=== PATIENT | female | born 1940 | race Two or more races ===

== ENCOUNTER → 2017-07-30 | Outpatient (CLI) | payer MEDICARE, OTHER ==
--- NOTE | 2017-07-30 16:53 | WOMENS IMAGING REPORT ---
EXAM DESCRIPTION: 3D SCREENING MAMMO BILAT COMPLETED DATE/TIME: 07/30/2017 9:02 am REASON FOR STUDY: SCREENING MAMMO COMPARISON: 2014, 2015 TECHNIQUE: Standard craniocaudal and mediolateral oblique views of each breast recorded using digita l acquisition and breast tomosynthesis. LIMITATIONS: None. FINDINGS: No masses, calcifications or architectural distortion. No areas of suspicion. Read with the assistance of CAD. .[facility] - R2 Cenova Version 1.3 .[facility] Imaging - R2 Cenova Version 1.3 .[facility] Imaging - R2 Cenova Version 2.4 .[facility] [place]2 Cenova Version 2.4 .REPLACED BY [facility] - R2 Radial Saw Operator Version 9.2 IMPRESSION: NORMAL MAMMOGRAM. BIRADS 1. BREAST DENSITY: b. There are scattered areas of fibroglandular density. BIRAD: 1 NEGATIVE RECOMMENDATION: ROUTINE SCREENING COMMENT: The patient has been notified of the results by letter per MQSA requirements. Additional no tification policies are in place for contacting patient with suspicious or incomplete findings. Quality ID #[id number]: The [employer] recommends an annual screening mammogram for women aged 40 years or over. This facility utilizes a reminder system to ensure that all patients receive reminder letters, and/or direct phone calls for appointments. This includes reminders for routine scr eening mammograms, diagnostic mammograms, or other Breast Imaging Interventions when appropriate. Th is patient will be placed in the appropriate reminder system. The [employer] (ACR) has developed recommendations for screening MRI of the breast s in certain patient populations, to be used in conjunction with mammography. Breast MRI surveillanc e may be appropriate for women with more than 20% lifetime risk of developing breast cancer as deter mined by genetic testing, significant family history of the disease, or history of mantle radiation f or Hodgkins Disease. ACR Practice Guidelines 2008. DBT Technology DBT is a type of tomographic mammography. With conventional mammography, overlapping breast tissue ma y make lesions difficult to detect, even with good compression. DBT uses an x-ray tube that rotates a round the breast, taking images at different angles. These images are then combined to create thin sl ices of the breast that the radiologist can view as a 3D reconstruction. The XanEdu unit can perform full-field digital mammograms (2D imaging); or DBT (3D imaging); or both, in a combination mode that quickly performs both the mammogram and the tomosynthesis scan while the breast is still compressed. PQRS 6045F: Fluoroscopic imaging is not utilized for breast tomosynthesis. TECHNICAL DOCUMENTATION: FINDING NUMBER: (1) ASSESSMENT: (1) JOB ID: [id number] [employer]- All Rights Reserved
== END ==
LOC: WI 08:45
PROVIDERS: ATTEND Internal Medicine
DX: Z12.31 Encounter for screening mammogram for malignant neoplasm of breast (principal)
CPT/HCPCS: 77063; G0202; 77067

== ENCOUNTER → 2018-04-08 | Outpatient (CLI) | payer MEDICARE, OTHER ==
--- NOTE | 2018-04-08 15:13 | XCELERA REPORT ---
[address] [place] [facility] [address] Lower Extremity Venous Evaluation Procedure: Color flow and duplex imaging of the veins of the left lower extremity as well as the right Common Femoral vein. Right Sided Venous Evaluation The right common femoral vein is fully compressible. Spontaneous and phasic flow is present in the right common femoral vein. Left Sided Venous Evaluation Normal vessel filling wall to wall, compression and augmentation as well as Colour flow down to the infrageniculate veins. Interpretation Summary No duplex evidence of DVT or obstruction in the left lower extremity nor in the right Common Femoral vein. Name: RINKU SAPP Age: 77 yrs Gender: Female : 1940 Patient Status: Outpatient Patient Location: Study Date: 04/08/2018 01:16 PM Reason For Study: LLE PAIN Ordering Physician: LARRY WESTON PA-C Performed By: Erasmo Herrera : LARRY WESTON PA-C > Pritesh Bolaños
== END ==
LOC: SP 13:56
PROVIDERS: ATTEND Physician Assistant
DX: M79.605 Pain in left leg (principal)
CPT/HCPCS: 93971

== ENCOUNTER 2018-07-19 10:50 | Emergency (ER) | payer MEDICARE, OTHER ==
--- NOTE | 2018-07-19 11:45 | ER Document Report ---
HPI - HPI Patient complains to provider of: Left leg pain Time Seen by Provider: 07/19/18 11:22 Onset: Other - 2 days Onset/Duration: Persistent Quality of pain: Achy Pain Level: 1 Context: Patient presents complaining of pain to the popliteal area of her left leg. Patient denies any injury or recent travel. Patient denies any fever. Associated Symptoms: Other - Left leg pain Exacerbated by: Standing, Movement, Walking Relieved by: Denies Similar symptoms previously: No Recently seen / treated by doctor: No - ROS ROS below otherwise negative: Yes Systems Reviewed and Negative: Yes All other systems reviewed and negative - CONSTITUTIONAL Constitutional: DENIES: Fever, Chills - EENT EENT: DENIES: Sore Throat - NEURO Neurology: DENIES: Headache - MUSCULOSKELETAL Musculoskeletal: REPORTS: Extremity pain - left leg, Swelling - DERM Skin Color: Normal Skin Problems: None Past Medical History - General Information source: Patient - Social History Smoking Status: Current Every Day Smoker Smoking Education Provided: Yes Frequency of alcohol use: Rare Drug Abuse: None Lives with: Alone Family History: Reviewed & Not Pertinent Patient has suicidal ideation: No Patient has homicidal ideation: No - Past Medical History Cardiac Medical History: Reports: Hx Hypercholesterolemia, Hx Hypertension Renal/ Medical History: Denies: Hx Peritoneal Dialysis Past Surgical History: Reports: Hx Cardiac Surgery - valve replacement, Hx Hysterectomy, Hx Orthopedic Surgery - left shoulder Vertical Provider Document - CONSTITUTIONAL Agree With Documented VS: Yes Exam Limitations: No Limitations General Appearance: WD/WN, No Apparent Distress - INFECTION CONTROL TRAVEL OUTSIDE OF THE [place] IN LAST 30 DAYS: No - HEENT HEENT: Atraumatic, Normocephalic - NECK Neck: Normal Inspection - RESPIRATORY Respiratory: Breath Sounds Normal, No Respiratory Distress - CARDIOVASCULAR Cardiovascular: Regular Rate, Regular Rhythm Pulses: Normal: Dorsalis pedis - BACK Back: Normal Inspection - MUSCULOSKELETAL/EXTREMETIES Musculoskeletal/Extremeties: MAEW, FROM, Tender - Left knee popliteal pain, normal skin color temperature overlying joint, no laxity with varus or valgus maneuvers. Patient with full range of motion, No Edema - NEURO Level of Consciousness: Awake, Alert, Appropriate Motor/Sensory: No Motor Deficit - DERM Integumentary: Warm, Dry, No Rash Course - Re-evaluation Re-evalutation: 07/19/18 13:17 Knee x-ray reviewed, no concern for fracture. No concern for DVT or septic arthritis. Patient does have a lucent mass noted on Doppler to the popliteal area concerning for possible Castle's cyst. Offered immobilization of knee with Mao wrap, patient declines. Patient was given a copy of her radiology as well as Doppler report to take to her orthopedic surgeon. - Vital Signs Vital signs: Temp Pulse Resp BP Pulse Ox 98.5 F 99 16 148/75 H 97 07/19/18 10:56 07/19/18 10:56 07/19/18 10:56 07/19/18 10:56 07/19/18 10:56 - Diagnostic Test Radiology reviewed: Pending, Image reviewed Discharge - Discharge Clinical Impression: Popliteal leg pain, Popliteal mass L leg Condition: Stable Disposition: HOME, SELF-CARE Instructions: Growth or Mass, Pending Workup ([facility]), Ultram ([facility]) Additional Instructions: Return immediately for any new or worsening symptoms Followup with your primary care provider, call tomorrow to make a followup appointment Follow-up with orthopedics for further evaluation, call today for a follow-up appointment Prescriptions: Tramadol HCl [Ultram 50 mg Tablet] 50 mg PO ASDIR PRN #15 tablet PRN Reason: Referrals: ONEAL HUANG MD [Primary Care Provider] - Follow up as needed [facility] [Provider Group] - Follow up in 3-5 days
--- NOTE | 2018-07-19 13:07 | XCELERA REPORT ---
[address] [place] [facility] [address] Lower Extremity Venous Evaluation Procedure: Color flow and duplex imaging of the veins of the left lower extremity as well as the right Common Femoral vein. Right Sided Venous Evaluation The right common femoral vein is fully compressible. Spontaneous and phasic flow is present in the right common femoral vein. Left Sided Venous Evaluation Non vascular, lucent mass in the Popliteal fossa, 3.2 x 2 x 0.8 cms. Normal vessel filling wall to wall, compression and augmentation as well as Colour flow down to the infrageniculate veins. Interpretation Summary No duplex evidence of DVT or obstruction in the left lower extremity nor in the right Common Femoral vein. 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 Name: RINKU SAPP Age: 77 yrs Gender: Female : 1940 Patient Status: Emergency Patient Location: ER Study Date: 07/19/2018 12:11 PM Reason For Study: L popliteal pain Ordering Physician: SHANON HENRY Performed By: Cari Hewitt : SHANON HENRY > Pritesh Bolaños
--- NOTE | 2018-07-19 13:20 | RADIOLOGY REPORT (SQ) ---
EXAM DESCRIPTION: KNEE LEFT 4 VIEW COMPLETED DATE/TIME: 07/19/2018 12:47 pm REASON FOR STUDY: popliteal pain , no known injury COMPARISON: None. NUMBER OF VIEWS: Four views. TECHNIQUE: AP, lateral, and both oblique radiographic images acquired of the left knee. LIMITATIONS: None. FINDINGS: MINERALIZATION: Osteopenic BONES: No acute fracture or dislocation. No worrisome bone lesions. JOINT: Suprapatellar knee joint effusion is present. Moderate medial compartment joint space narrowi ng and bony spurring. Medial and lateral compartment chondrocalcinosis SOFT TISSUES: No soft tissue swelling. No radio-opaque foreign body. OTHER: No other significant finding. IMPRESSION: Knee joint effusion. Moderate osteoarthritis medial compartment No acute fracture or malalignment TECHNICAL DOCUMENTATION: JOB ID: [id number]- All Rights Reserved Reading location - IP/workstation name: [email or web address]
[2018-07-19 13:37] VITALS: BP 132/73
== END 2018-07-19 13:46 | disposition home or self-care (01) ==
LOC: ER 10:50
DX: M79.605 Pain in left leg (principal); R22.42 Localized swelling, mass and lump, left lower limb; F17.200 Nicotine dependence, unspecified, uncomplicated; I10 Essential (primary) hypertension
CPT/HCPCS: 93971; 99284

== ENCOUNTER → 2018-07-31 | Outpatient (CLI) | payer MEDICARE, OTHER ==
--- NOTE | 2018-07-31 15:55 | WOMENS IMAGING REPORT ---
EXAM DESCRIPTION: 3D SCREENING MAMMO BILAT COMPLETED DATE/TIME: 07/31/2018 10:27 am REASON FOR STUDY: SVETLANA SCREENING MAMMO Z12.31 Z12.31 ENCNTR SCREEN MAMMOGRAM FOR MALIGNANT NEOPLASM OF JOEY COMPARISON: Multiple since 2014 TECHNIQUE: Standard craniocaudal and mediolateral oblique views of each breast recorded using digita l acquisition and breast tomosynthesis. LIMITATIONS: None. FINDINGS: No masses, calcifications or architectural distortion. No areas of suspicion. Read with the assistance of CAD. .[facility] - R2 Cenova Version 1.3 .[facility] Imaging - R2 Cenova Version 1.3 .[facility] Imaging - R2 Cenova Version 2.4 .[facility] - R2 Cenova Version 2.4 .[facility] [place] - R2 Physician General Practice Version 9.2 IMPRESSION: NORMAL MAMMOGRAM. BIRADS 1. BREAST DENSITY: b. There are scattered areas of fibroglandular density. BIRAD: 1 NEGATIVE RECOMMENDATION: ROUTINE SCREENING Please continue yearly bilateral screening mammography/tomosynthesis in July 2019 COMMENT: The patient has been notified of the results by letter per SA requirements. Additional no tification policies are in place for contacting patient with suspicious or incomplete findings. Quality ID #225: The [employer] recommends an annual screening mammogram for women aged 40 years or over. This facility utilizes a reminder system to ensure that all patients receive reminder letters, and/or direct phone calls for appointments. This includes reminders for routine scr eening mammograms, diagnostic mammograms, or other Breast Imaging Interventions when appropriate. Th is patient will be placed in the appropriate reminder system. The [employer] (ACR) has developed recommendations for screening MRI of the breast s in certain patient populations, to be used in conjunction with mammography. Breast MRI surveillanc e may be appropriate for women with more than 20% lifetime risk of developing breast cancer as deter mined by genetic testing, significant family history of the disease, or history of mantle radiation f or Hodgkins Disease. ACR Practice Guidelines 2008. DBT Technology DBT is a type of tomographic mammography. With conventional mammography, overlapping breast tissue ma y make lesions difficult to detect, even with good compression. DBT uses an x-ray tube that rotates a round the breast, taking images at different angles. These images are then combined to create thin sl ices of the breast that the radiologist can view as a 3D reconstruction. The [employer] unit can perform full-field digital mammograms (2D imaging); or DBT (3D imaging); or both, in a combination mode that quickly performs both the mammogram and the tomosynthesis scan while the breast is still compressed. PQRS 6045F: Fluoroscopic imaging is not utilized for breast tomosynthesis. TECHNICAL DOCUMENTATION: FINDING NUMBER: (1) ASSESSMENT: (1) JOB ID: [id number] [employer]- All Rights Reserved Reading location - IP/workstation name: [email or web address]
== END ==
LOC: WI 09:49
PROVIDERS: ATTEND Physician Assistant
DX: Z12.31 Encounter for screening mammogram for malignant neoplasm of breast (principal)
CPT/HCPCS: 77063; 77067

== ENCOUNTER → 2018-08-29 | Outpatient (CLI) | payer MEDICARE, OTHER ==
--- NOTE | 2018-08-29 13:03 | XCELERA REPORT ---
[address] [place] [facility] [address] Lower Extremity Venous Evaluation Procedure: Color flow and duplex imaging of the veins of the left lower extremity as well as the right Common Femoral vein. Right Sided Venous Evaluation The right common femoral vein is fully compressible. Spontaneous and phasic flow is present in the right common femoral vein. Left Sided Venous Evaluation Normal vessel filling wall to wall, compression and augmentation as well as Colour flow down to the infrageniculate veins. Interpretation Summary No duplex evidence of DVT or obstruction in the left lower extremity nor in the right Common Femoral vein. Name: RINKU SAPP Age: 77 yrs Gender: Female : 1940 Patient Status: Preadmit Patient Location: Study Date: 08/29/2018 11:13 AM Reason For Study: LLE PAIN Ordering Physician: NAYELY FIELDS Performed By: Erasmo Herrera : NAYELY FIELDS > Pritesh Bolaños
== END ==
LOC: SP 10:25
PROVIDERS: ATTEND Physician Assistant
DX: M79.662 Pain in left lower leg (principal)
CPT/HCPCS: 93971

== ENCOUNTER → 2018-12-26 | Outpatient (CLI) | payer MEDICARE, OTHER ==
[2018-12-26 11:37] LABS: HEMATOCRIT 38.5 % (36.0-47.0); HEMOGLOBIN 12.8 g/dL (12.0-15.5); MEAN CORPUSCULAR HEMOGLOBIN 27.6 pg (27.0-33.4); MEAN CORPUSCULAR HGB CONC 33.3 g/dL (32.0-36.0); MEAN CORPUSCULAR VOLUME 83 fl (80-97); PLATELET COUNT 215 10^3/uL (150-450); RED BLOOD COUNT 4.64 10^6/uL (3.72-5.28); RED CELL DISTRIBUTION WIDTH 15.9 % (11.5-14.0); WHITE BLOOD COUNT 8.6 10^3/uL (4.0-10.5)
[2018-12-26 11:44] LABS: INTERNATIONAL RATION (INR) 1.07; PROTHROMBIN TIME 14.4 SEC (11.4-15.4)
[2018-12-26 11:45] LABS: PARTIAL THROMBOPLASTIN TIME 28.3 SEC (23.5-35.8)
[2018-12-26 11:56] LABS: ANION GAP 9 (5-19); BLOOD UREA NITROGEN 20 mg/dL (7-20); CALCIUM 9.4 mg/dL (8.4-10.2); CARBON DIOXIDE 29 mmol/L (22-30); CHLORIDE 105 mmol/L (98-107); GLUCOSE 98 mg/dL (75-110); POTASSIUM 4.8 mmol/L (3.6-5.0); SODIUM 142.5 mmol/L (137-145)
== END ==
LOC: LAB 10:34
PROVIDERS: ATTEND Internal Medicine Cardiovascular Disease
DX: I48.91 Unspecified atrial fibrillation (principal); Z79.01 Long term (current) use of anticoagulants; Z79.899 Other long term (current) drug therapy
CPT/HCPCS: 36415; 80048; 85027; 85610; 85730

== ENCOUNTER → 2019-01-01 | Outpatient (CLI) | payer MEDICARE, OTHER ==
[~2019-01-01] MED LIST: ALBUTEROL SULFATE 0.083% NEB 2.5 MG/3 ML AMPUL NEB ONE
--- NOTE | 2019-01-03 11:28 | Pulmonary Function Test ---
Pulmonary Function Test Date of Procedure:: 01/03/19 INDICATION:: Dyspnea Referring Provider: Dr.A Raza Survey Engineer: Kamala Adams, CANINE SERVICE TEACHER, CORE STACKER - Report Spirometry: Spirometry: pre-FVC: 2.08 L 91% post-FVC 2.19 L 86% pre-FEV:1 1.35 L 76% post-FEV1; 1.33 L 75% pre-FEV1/FVC % 65 post-FEV1/FVC% 60 predicted 82 xnb-CVK37-18% 0.80 L 49% rels-MVD31-98% 0.70 L 43% Impression: Mild obstructive ventilatory defect. Insignificant response to bronchodilator therapy. In and of itself does not preclude a clinical trial of bronchodilator therapy.
== END ==
LOC: RT 13:25
PROVIDERS: ATTEND Internal Medicine Cardiovascular Disease
DX: R06.02 Shortness of breath (principal)
CPT/HCPCS: 94060; A9270

== ENCOUNTER 2019-01-02 15:19 | Emergency (ER) | payer MEDICARE, OTHER ==
[2019-01-02] MEDS ORDERED: ONDANSETRON 4 MG TAB.RAPDIS PO ONE (15:54)
--- NOTE | 2019-01-02 15:55 | ER Document Report ---
ED Medical Screen (RME) - General Chief Complaint: Blood Pressure Problem Stated Complaint: BLOOD PRESSURE ISSUE Time Seen by Provider: 01/02/19 15:53 Primary Care Provider: LIAM ELI MD [Primary Care Provider] - Follow up as needed Mode of Arrival: Ambulatory Information source: Patient Notes: Patient presents complaining of dizziness that started yesterday. Patient did have a recent heart catheterization on Sunday and states that they did not find any blockages. Patient denies any headache chest pain or shortness of breath. Patient does report some nausea but denies any vomiting. I have greeted and performed a rapid initial assessment of this patient. A comprehensive ED assessment and evaluation of the patient, analysis of test results and completion of the medical decision making process will be conducted by additional ED providers. TRAVEL OUTSIDE OF THE [place] IN LAST 30 DAYS: No - Related Data Allergies/Adverse Reactions: Sulfa (Sulfonamide Antibiotics) Allergy (Verified 01/02/19 15:22) Past Medical History - Social History Frequency of alcohol use: Rare Drug Abuse: None - Past Medical History Cardiac Medical History: Reports: Hx Hypercholesterolemia, Hx Hypertension Renal/ Medical History: Denies: Hx Peritoneal Dialysis Past Surgical History: Reports: Hx Cardiac Surgery - valve replacement, Hx Hysterectomy, Hx Orthopedic Surgery - left shoulder Physical Exam - Vital signs Vitals: Temp Pulse Resp BP Pulse Ox 98.1 F 63 18 172/78 H 96 01/02/19 15:29 01/02/19 15:29 01/02/19 15:29 01/02/19 15:29 01/02/19 15:29 - General General appearance: Appears well, Alert In distress: None - Cardiovascular Rhythm: Regular Heart sounds: S1 appreciated, S2 appreciated Course - Vital Signs Vital signs: Temp Pulse Resp BP Pulse Ox 98.1 F 63 18 172/78 H 96 01/02/19 15:29 01/02/19 15:29 01/02/19 15:29 01/02/19 15:29 01/02/19 15:29 Doctor's Discharge - Discharge Referrals: LIAM ELI MD [Primary Care Provider] - Follow up as needed
--- NOTE | 2019-01-02 16:30 | RADIOLOGY REPORT (SQ) ---
EXAM DESCRIPTION: CHEST 2 VIEWS COMPLETED DATE/TIME: 01/02/2019 4:06 pm REASON FOR STUDY: dizziness COMPARISON: 11/29/2017 EXAM PARAMETERS: NUMBER OF VIEWS: two views TECHNIQUE: Digital Frontal and Lateral radiographic views of the chest acquired. RADIATION DOSE: NA LIMITATIONS: none FINDINGS: LUNGS AND PLEURA: No opacities, masses or pneumothorax. No pleural effusion. MEDIASTINUM AND HILAR STRUCTURES: No masses or contour abnormalities. HEART AND VASCULAR STRUCTURES: Heart normal size. No evidence for failure. BONES: No acute findings. HARDWARE: Prosthetic heart valve. OTHER: No other significant finding. IMPRESSION: NO ACUTE RADIOGRAPHIC FINDING IN THE CHEST. TECHNICAL DOCUMENTATION: JOB ID: [id number] [employer]- All Rights Reserved Reading location - IP/workstation name: [email or web address]
[2019-01-02 16:58] LABS: ABSOLUTE BASOPHILS # (AUTO) 0.1 10^3/uL (0.0-0.2); ABSOLUTE EOSINOPHILS # (AUTO) 0.5 10^3/uL (0.0-0.6); ABSOLUTE LYMPHOCYTES (AUTO) 2.6 10^3/uL (0.5-4.7); BASOPHILS % (AUTO) 0.7 % (0-2); EOSINOPHILS % (AUTO) 4.3 % (0-6); HEMATOCRIT 39.9 % (36.0-47.0); HEMOGLOBIN 12.9 g/dL (12.0-15.5); LYMPHOCYTES % (AUTO) 23.1 % (13-45); MEAN CORPUSCULAR HEMOGLOBIN 27.1 pg (27.0-33.4); MEAN CORPUSCULAR HGB CONC 32.2 g/dL (32.0-36.0); MEAN CORPUSCULAR VOLUME 84 fl (80-97); MONOCYTES % (AUTO) 8.8 % (3-13); PLATELET COUNT 206 10^3/uL (150-450); RED BLOOD COUNT 4.74 10^6/uL (3.72-5.28); RED CELL DISTRIBUTION WIDTH 16.3 % (11.5-14.0); SEGMENTED NEUTROPHILS % (AUTO) 63.1 % (42-78); TOTAL CELLS COUNTED % (AUTO) 100 %; WHITE BLOOD COUNT 11.1 10^3/uL (4.0-10.5)
[2019-01-02 17:19] LABS: ALANINE AMINOTRANSFERASE 32 U/L (9-52); ALBUMIN 4.2 g/dL (3.5-5.0); ALKALINE PHOSPHATASE 167 U/L (38-126); ANION GAP 11 (5-19); ASPARTATE AMINO TRANSFERASE 23 U/L (14-36); BILIRUBIN,DIRECT 0.3 mg/dL (0.0-0.4); BILIRUBIN,TOTAL 0.8 mg/dL (0.2-1.3); BLOOD UREA NITROGEN 19 mg/dL (7-20); CALCIUM 9.6 mg/dL (8.4-10.2); CARBON DIOXIDE 30 mmol/L (22-30); CHLORIDE 103 mmol/L (98-107); GLUCOSE 84 mg/dL (75-110); POTASSIUM 4.1 mmol/L (3.6-5.0); SODIUM 143.5 mmol/L (137-145); TOTAL PROTEIN 7.3 g/dL (6.3-8.2)
--- NOTE | 2019-01-02 17:42 | EKG REPORT ---
SEVERITY:- OTHERWISE NORMAL ECG - SINUS RHYTHM BORDERLINE LEFT AXIS DEVIATION : Confirmed by: Andre Cabral 02-Jan-2019 17:42:15
[2019-01-02] MEDS ORDERED: LISINOPRIL 10 MG TABLET PO ONE (20:39)
--- NOTE | 2019-01-02 20:44 | ER Document Report ---
ED General - General Chief Complaint: Blood Pressure Problem Stated Complaint: BLOOD PRESSURE ISSUE Time Seen by Provider: 01/02/19 15:53 Primary Care Provider: LIAM ELI MD [Primary Care Provider] - Follow up in 3-5 days Mode of Arrival: Ambulatory Notes: Patient is a 78-year-old female with past medical history of hypertension, presents complaining of worsening blood pressures. Patient states that she injured her right shoulder, is working to get cardiac clearance for operative management of the shoulder. States that she had a cardiac catheterization on Sunday and that since that time she has felt extremely anxious, has multiple social stressors and is also been checking her blood pressure and found to be very high into the 200 systolic. When she saw her antique furniture reproducer in the office her blood pressure was that elevated as well. They instructed ongoing follow-up of her blood pressure as an outpatient. States that she checked it today at [facility], contacted the antique furniture reproducer clinical rehabilitation specialist informing them that it was still extremely high and was instructed to come to the emergency department. The only symptom that she states that she has had is a feeling of anxiety but also fee ling like she has a fullness of her head. She denies any chest pain, shortness of breath, difficulty ambulating, weakness, numbness nausea or vomiting. She states that sometimes she feels somewhat off balance but currently denies this symptom. Regards her symptoms as being very mild, intermittent in nature not improved or worsened by anything. TRAVEL OUTSIDE OF THE [place] IN LAST 30 DAYS: No - Related Data Allergies/Adverse Reactions: Sulfa (Sulfonamide Antibiotics) Allergy (Verified 01/02/19 15:22) Past Medical History - General Information source: Patient - Social History Smoking Status: Former Smoker Frequency of alcohol use: Rare Drug Abuse: None Lives with: Alone Family History: Reviewed & Not Pertinent Patient has suicidal ideation: No Patient has homicidal ideation: No - Past Medical History Cardiac Medical History: Reports: Hx Hypercholesterolemia, Hx Hypertension Renal/ Medical History: Denies: Hx Peritoneal Dialysis Past Surgical History: Reports: Hx Cardiac Surgery - valve replacement, Hx Hysterectomy, Hx Orthopedic Surgery - left shoulder Review of Systems - Review of Systems Notes: Constitutional: Negative for fever. HENT: Negative for sore throat. Eyes: Negative for visual changes. Cardiovascular: Negative for chest pain. Respiratory: Negative for shortness of breath. Gastrointestinal: Negative for abdominal pain, vomiting or diarrhea. Genitourinary: Negative for dysuria. Musculoskeletal: Negative for back pain. Skin: Negative for rash. Neurological: Negative for headaches, weakness or numbness. 10 point ROS negative except as marked above and in HPI. Physical Exam - Vital signs Vitals: Temp Pulse Resp BP Pulse Ox 98.1 F 63 18 172/78 H 96 01/02/19 15:29 01/02/19 15:29 01/02/19 15:29 01/02/19 15:29 01/02/19 15:29 Interpretation: Hypertensive Notes: PHYSICAL EXAMINATION: GENERAL: Well-appearing, well-nourished and in no acute distress. HEAD: Atraumatic, normocephalic. EYES: Pupils equal round and reactive to light, extraocular movements intact, sclera anicteric, conjunctiva are normal. ENT: nares patent, oropharynx clear without exudates. Moist mucous membranes. NECK: Normal range of motion, supple without lymphadenopathy LUNGS: Breath sounds clear to auscultation bilaterally and equal. No wheezes rales or rhonchi. HEART: Regular rate and rhythm without murmurs ABDOMEN: Soft, nontender, normoactive bowel sounds. No guarding, no rebound. No masses appreciated. EXTREMITIES: Right arm in a sling no pitting or edema. No cyanosis. NEUROLOGICAL: Face symmetric. Tongue protrudes midline. Extraocular motions intact. Pupils are 2 mm and equally reactive. Normal speech, normal gait. 5 out of 5 strength in both the distal and proximal upper and lower extremities bilaterally. Sensation is grossly intact throughout. PSYCH: Anxious, intermittently tearful SKIN: Warm, Dry, normal turgor, no rashes or lesions noted. Course - Re-evaluation Re-evalutation: 01/02/19 20:44 Presentation of essential hypertension. Patient is concerned about persistently elevated blood pressures over the past 1 week. Patient only complains of i ntermittent feeling of fullness in her head denying true vertigo or loss of balance to me. Patient denies any symptoms concerning for SAH, dissection, [place], or encephalopaty. Alert, oriented, and denies any symptoms at time of assessment. Normal neuro exam. Labs, chest x-ray, EKG obtained in triage are noted to be normal. I have increased patient's lisinopril to 20 mg daily. I do believe there is a significant component of pain and anxiety causing elevated blood pressure as the patient is tearful during multiple points during our exam to the recent loss of her dog, absence of social support, and significant anxiety about her health. She states that she also has significant pain in her right shoulder that is not being adequately managed and is unable to be surgically managed until she gets cardiac clearance. At this time will discharge with return precautions and follow-up recommendations. Verbal discharge instructions given a the bedside and opportunity for questions given. Medication warnings reviewed. Patient is in agreement with this plan and has verbalized understanding of return precautions and the need for primary care follow-up in the next 24-72 hours. - Vital Signs Vital signs: Temp Pulse Resp BP Pulse Ox 98.1 F 62 18 194/83 H 92 01/02/19 15:29 01/02/19 20:56 01/02/19 15:29 01/02/19 20:56 01/02/19 20:56 - Laboratory Result Diagrams: 01/02/19 16:35 01/02/19 16:35 Laboratory results interpreted by me: 01/02/19 01/02/19 16:35 16:35 WBC 11.1 H RDW 16.3 H Alkaline Phosphatase 167 H - Diagnostic Test Radiology reviewed: Image reviewed, Reports reviewed Radiology results interpreted by me: 01/02/19 20:43 Chest x-ray: No acute infiltrate or pneumothorax - EKG Interpretation by Me Additional EKG results interpreted by me: 01/02/19 20:44 Sinus rhythm, rate 68. No ST elevations or depressions. QTC is 439. Discharge - Discharge Clinical Impression: Essential hypertension, Fullness in head Right shoulder pain Qualifiers: Chronicity: acute Qualified Code(s): M25.511 - Pain in right shoulder Condition: Good Disposition: HOME, SELF-CARE Additional Instructions: You were seen today for blood pressure that was high. This is a long-term risk factor for multiple medical problems including heart attack and stroke. However, the blood pressure in of itself will not cause you to have an acute stroke or heart attack over the course of just several days or weeks. You need to have a gradual reduction of your blood pressure back to normal levels over the next several months in conjunction with your primary care physician. Please increase your lisinopril to 20 mg daily. You have been prescribed hydroxyzine which can be used as needed for anxiety. Return if you develop headache, weakness, numbness, chest pain, pass out, or have any other symptoms that are concerning to you. Prescriptions: Hydroxyzine HCl [Atarax 25 mg Tablet] 1 tab PO BID PRN #25 tablet PRN Reason: Lisinopril 20 mg PO DAILY #30 tablet Referrals: LIAM ELI MD [Primary Care Provider] - Follow up in 3-5 days
[2019-01-02 21:11] VITALS: BP 194/83
== END 2019-01-02 21:05 | disposition home or self-care (01) ==
LOC: ER 15:19
DX: I10 Essential (primary) hypertension (principal); M25.511 Pain in right shoulder; Z87.891 Personal history of nicotine dependence
CPT/HCPCS: 93005; 99284; 36415; 85025; 80053; 84484; 71046; 93010; A9270 ×2; S0119

== ENCOUNTER → 2019-06-24 | Outpatient (CLI) | payer MEDICARE, OTHER ==
--- NOTE | 2019-06-24 10:14 | WOMENS IMAGING REPORT ---
EXAM DESCRIPTION: BILAT DIAGNOSTIC MAMMO W/CAD; U/S BREAST UNILAT LIMITED COMPLETED DATE/TIME: 06/24/2019 9:03 am; 06/24/2019 9:46 am REASON FOR STUDY: M79.89 OTHER SPECIFIED SOFT TISSUE DISORDERS; M79.89 RIGHT BREAST M79.89 OTHER SP ECIFIED SOFT TISSUE DISORDERS COMPARISON: 2014 through 2017. EXAM PARAMETERS: Standard craniocaudal and mediolateral oblique views of each breast recorded using digital acquisition. Additional right true lateral. Targeted right breast ultrasound. Read with the assistance of CAD: .COUNTS INCLUDE 234 BEDS AT THE [facility] - [employer] Therapist Version 9.2 LIMITATIONS: None. FINDINGS: RIGHT BREAST MASSES: No suspicious masses. CALCIFICATIONS: Stable scattered benign calcifications. ARCHITECTURAL DISTORTION: None. ASYMMETRY: None noted. OTHER: No other significant findings. LEFT BREAST MASSES: No suspicious masses. CALCIFICATIONS: Stable scattered benign calcifications. ARCHITECTURAL DISTORTION: None. ASYMMETRY: None noted. OTHER: No other significant finding. Ultrasound right breast: Scanning of the right axilla. No mass. No enlarged or abnormal nodes. No tissue distortion. IMPRESSION: 1. The etiology for right axillary swelling is not appreciated. No suspicious findings. Stable mamm ograms. Follow-up of the swelling is still necessary clinically. BREAST DENSITY: b. There are scattered areas of fibroglandular density. BIRAD: ASSESSMENT: 2 Benign findings. RECOMMENDATION: RECOMMENDED FOLLOW UP: Clinical followup. Continued yearly mammography. SPECIFIC INTERVENTION/IMAGING/CONSULTATION RECOMMENDED:No additional intervention/ imaging/consultati on needed at this time. COMMUNICATION:No significant abnormalities to discuss with the patient today. COMMENT: The patient has been notified of the results by letter per MQSA requirements. Additional no tification policies are in place for contacting patient with suspicious or incomplete findings. Quality ID #225: The [employer] recommends an annual screening mammogram for women aged 40 years or over. This facility utilizes a reminder system to ensure that all patients receive reminder letters, and/or direct phone calls for appointments. This includes reminders for routine scr eening mammograms, diagnostic mammograms, or other Breast Imaging Interventions when appropriate. Th is patient will be placed in the appropriate reminder system. TECHNICAL DOCUMENTATION: FINDING NUMBER: (1) ASSESSMENT: (1) JOB ID: [id number] [employer]- All Rights Reserved Reading location - IP/workstation name: [email or web address]
--- NOTE | 2019-06-24 10:14 | WOMENS IMAGING REPORT ---
EXAM DESCRIPTION: BILAT DIAGNOSTIC MAMMO W/CAD; U/S BREAST UNILAT LIMITED COMPLETED DATE/TIME: 06/24/2019 9:03 am; 06/24/2019 9:46 am REASON FOR STUDY: M79.89 OTHER SPECIFIED SOFT TISSUE DISORDERS; M79.89 RIGHT BREAST M79.89 OTHER SP ECIFIED SOFT TISSUE DISORDERS COMPARISON: 2014 through 2017. EXAM PARAMETERS: Standard craniocaudal and mediolateral oblique views of each breast recorded using digital acquisition. Additional right true lateral. Targeted right breast ultrasound. Read with the assistance of CAD: .[facility] - [employer] Manager Nurse Version 9.2 LIMITATIONS: None. FINDINGS: RIGHT BREAST MASSES: No suspicious masses. CALCIFICATIONS: Stable scattered benign calcifications. ARCHITECTURAL DISTORTION: None. ASYMMETRY: None noted. OTHER: No other significant findings. LEFT BREAST MASSES: No suspicious masses. CALCIFICATIONS: Stable scattered benign calcifications. ARCHITECTURAL DISTORTION: None. ASYMMETRY: None noted. OTHER: No other significant finding. Ultrasound right breast: Scanning of the right axilla. No mass. No enlarged or abnormal nodes. No tissue distortion. IMPRESSION: 1. The etiology for right axillary swelling is not appreciated. No suspicious findings. Stable mamm ograms. Follow-up of the swelling is still necessary clinically. BREAST DENSITY: b. There are scattered areas of fibroglandular density. BIRAD: ASSESSMENT: 2 Benign findings. RECOMMENDATION: RECOMMENDED FOLLOW UP: Clinical followup. Continued yearly mammography. SPECIFIC INTERVENTION/IMAGING/CONSULTATION RECOMMENDED:No additional intervention/ imaging/consultati on needed at this time. COMMUNICATION:No significant abnormalities to discuss with the patient today. COMMENT: The patient has been notified of the results by letter per MQSA requirements. Additional no tification policies are in place for contacting patient with suspicious or incomplete findings. Quality ID #225: The [employer] recommends an annual screening mammogram for women aged 40 years or over. This facility utilizes a reminder system to ensure that all patients receive reminder letters, and/or direct phone calls for appointments. This includes reminders for routine scr eening mammograms, diagnostic mammograms, or other Breast Imaging Interventions when appropriate. Th is patient will be placed in the appropriate reminder system. TECHNICAL DOCUMENTATION: FINDING NUMBER: (1) ASSESSMENT: (1) JOB ID: [id number] [employer]- All Rights Reserved Reading location - IP/workstation name: [email or web address]
== END ==
LOC: WI 08:20
PROVIDERS: ATTEND Physician Assistant
DX: M79.89 Other specified soft tissue disorders (principal)
CPT/HCPCS: 76642; 77066